=== PATIENT | male | born 1960 | race Caucasian/White ===

== ENCOUNTER 2018-11-29 16:15 | Emergency (ER) | payer BC ==
[~2018-11-29] VITALS: Ht 188 cm; Wt 144.2 kg
[~2018-11-29 16:15] MED LIST: ACET325 PO; CYAFAPYR PO; LISI5 PO; NAPR220 PO; THIA100 PO; XARELTO15 MG PO
[2018-11-29 17:23] LABS: BASOPHILS ABSOLUTE AUTO 0.03 K/mm3 (0.00-0.23); BASOPHILS PERCENT AUTO 0 % (0-2); EOSINOPHILS ABSOLUTE AUTO 0.11 K/mm3 (0.00-0.68); EOSINOPHILS PERCENT AUTO 2 % (0-6); Hematocrit 43.2 % (37.0-53.0); Hemoglobin 14.8 g/dL (13.5-17.5); IMMATURE GRAN ABSOLUTE AUTO 0.02 K/mm3 (0.00-0.10); IMMATURE GRAN PERCENT AUTO 0 % (0-1); LYMPHOCYTES ABSOLUTE AUTO 1.64 K/mm3 (0.84-5.20); LYMPHOCYTES PERCENT AUTO 24 % (21-46); MONOCYTES ABSOLUTE AUTO 0.56 K/mm3 (0.16-1.47); MONOCYTES PERCENT AUTO 8 % (4-13); Mean Corpuscular HGB 33.6 pg (26.0-34.0); Mean Corpuscular HGB Conc 34.3 g/dL (31.5-36.5); Mean Corpuscular Volume 98 fL (80-100); Mean Platelet Volume 10.4 fL (9.1-12.4); NEUTROPHILS ABSOLUTE AUTO 4.55 K/mm3 (1.96-9.15); NEUTROPHILS PERCENT AUTO 66 % (41-73); Platelet Count 151 K/mm3 (150-400); RDW Coefficient Variation 12.4 % (11.7-14.2); White Blood Cell Count 6.91 K/mm3 (4.00-11.30)
[2018-11-29 17:40] LABS: Alanine Aminotransfer (ALT/SGP 102 U/L (12-78); Albumin, Blood 3.3 g/dL (3.4-5.0); Albumin/Globulin Ratio 0.8 (0.8-1.8); Alk Phos 77 U/L (50-136); Anion Gap 6 mmol/L (6-16); Aspartate Aminotrans (AST/SGOT 65 U/L (12-37); Bilirubin, Total 0.6 mg/dL (0.1-1.0); Blood Urea Nitrogen 17 mg/dL (8-24); Bun/Creatinine Ratio 17.3 (12.0-20.0); CO2, Blood 26 mmol/L (21-32); Calcium, Blood 8.9 mg/dL (8.5-10.1); Chloride, Blood 103 mmol/L (98-108); Creatinine, Blood 0.98 mg/dL (0.60-1.20); Globulin, Blood 4.1 g/dL (2.2-4.0); Glomerular Filtration Rate >60 (60-); Glucose, Blood 116 mg/dL (70-99); Potassium, Blood 4.2 mmol/L (3.5-5.5); Sodium, Blood 135 mmol/L (136-145); Total Protein, Blood 7.4 g/dL (6.4-8.2)
[2018-11-29 19:18] LABS: Source, Urine Clean Catch
[2018-11-29 19:21] LABS: Appearance, Urine Cloudy (Clear); Bilirubin, Urine Neg (Neg); Blood, Urine 5+ (Neg); Color, Urine Amber (P-Yellow); Glucose Qualitative, Urine Neg (Neg); Ketones, Urine 1+ (Neg); Leukocyte Esterase, Urine 1+ (Neg); Nitrite, Urine Neg (Neg); Protein, Urine 3+ (Neg); Specific Gravity, Urine 1.025 (1.003-1.022); Urobilinogen, Urine NORM (Normal)
[2018-11-29 19:33] LABS: Bacteria Many /hpf; Red Blood Cells, Urine TNTC /hpf (0-2); Squamous Epithelial Cells Not Seen /hpf (Few); Yeast/Fungi Urine Mod /hpf
[2018-11-29 19:34] LABS: Mucus Light (0-Heavy)
== END 2018-11-29 21:20 | disposition home or self-care (01) ==
LOC: ER 16:15
PROVIDERS: Physician Assistant
DX: R31.9 Hematuria, unspecified (principal); Z79.899 Other long term (current) drug therapy
CPT/HCPCS: 74176; 80053; 81001; 85025; 87086; 99284-25

== ENCOUNTER 2023-03-12 10:17 | Inpatient (IN) | payer BC ==
[~2023-03-12] VITALS: Ht 188 cm; Wt 103.3 kg
[~2023-03-12 10:17] MED LIST changes: +B-1100 M1 PO; -THIA100 PO; -XARELTO15 MG PO; +XARELTO20 MG PO
[2023-03-12 11:10] LABS: BASOPHILS ABSOLUTE AUTO 0.02 K/mm3 (0.00-0.23); BASOPHILS PERCENT AUTO 0 % (0-2); EOSINOPHILS ABSOLUTE AUTO 0.07 K/mm3 (0.00-0.68); EOSINOPHILS PERCENT AUTO 2 % (0-6); Hematocrit 26.2 % (37.0-53.0); Hemoglobin 9.1 g/dL (13.5-17.5); IMMATURE GRAN ABSOLUTE AUTO 0.02 K/mm3 (0.00-0.10); IMMATURE GRAN PERCENT AUTO 0 % (0-1); LYMPHOCYTES ABSOLUTE AUTO 0.87 K/mm3 (0.84-5.20); LYMPHOCYTES PERCENT AUTO 19 % (21-46); MONOCYTES ABSOLUTE AUTO 0.68 K/mm3 (0.16-1.47); MONOCYTES PERCENT AUTO 15 % (4-13); Mean Corpuscular HGB Conc 34.7 g/dL (31.5-36.5); Mean Corpuscular Volume 107 fL (80-100); Mean Platelet Volume 10.5 fL (9.1-12.4); NEUTROPHILS ABSOLUTE AUTO 2.91 K/mm3 (1.96-9.15); NEUTROPHILS PERCENT AUTO 64 % (41-73); RDW Coefficient Variation 13.9 % (11.7-14.2); RDW Standard Deviation 54.6 fL (35.1-46.3); Red Blood Cell Count 2.46 M/mm3 (4.30-5.90); White Blood Cell Count 4.57 K/mm3 (4.00-11.30)
[2023-03-12 11:11] LABS: Source, Urine Clean Catch
[2023-03-12] MEDS ORDERED: Methocarbamol750 MG PO (11:25)
[2023-03-12] MEDS ORDERED: OZEMPIC0.25 MG/0. SQ (11:25)
[2023-03-12] MEDS ORDERED: CARVEDILOL3.125 MG PO (11:25)
[2023-03-12] MEDS ORDERED: FUROSEMIDE20 MG PO (11:25)
[2023-03-12] MEDS ORDERED: ECOTRIN325 MG PO (11:25)
[2023-03-12 11:26] LABS: Appearance, Urine Clear (Clear); Blood, Urine 5+ (Neg); Color, Urine Amber (P-Yellow); Glucose Qualitative, Urine Neg (Neg); Ketones, Urine 1+ (Neg); Leukocyte Esterase, Urine 2+ (Neg); Nitrite, Urine Pos (Neg); Protein, Urine 2+ (Neg); Specific Gravity, Urine 1.025 (1.003-1.022); Urobilinogen, Urine 3+ (Normal)
[2023-03-12] MEDS ORDERED: METFORMIN HCL500 M2 PO (11:26)
[2023-03-12] MEDS ORDERED: OXYC5 PO (11:26)
[2023-03-12] MEDS ORDERED: TRAZ50 PO (11:26)
[2023-03-12] MEDS ORDERED: ONDA4 PO (11:26)
[2023-03-12 11:27] LABS: Albumin, Blood 2.4 g/dL (3.4-5.0); Albumin/Globulin Ratio 0.8 (0.8-1.8); Bilirubin, Total 3.3 mg/dL (0.1-1.0); Bun/Creatinine Ratio 20.5 (12.0-20.0); Calcium, Blood 8.7 mg/dL (8.5-10.1); Creatinine, Blood 1.85 mg/dL (0.60-1.20); Globulin, Blood 2.9 g/dL (2.2-4.0); Potassium, Blood 4.6 mmol/L (3.5-5.5); Total Protein, Blood 5.3 g/dL (6.4-8.2)
[2023-03-12 12:04] LABS: Bilirubin, Urine 2+ (Neg)
[2023-03-12 12:05] LABS: Bacteria Mod /hpf; Mucus Light (0-Heavy); Squamous Epithelial Cells Few /hpf (Few)
[2023-03-12 12:28] LABS: Platelet Count 61 K/mm3 (150-400)
[2023-03-12 16:20] VITALS: BP 106/59
--- NOTE | 2023-03-12 19:35 | NUR ---
SHIFT SUMMARY PTN TO ER WITH CONFUSION, WEAKNESS, AND POOR ORAL INTAKE, ADMITTED WITH ACUTE ENCEPHALOPATHY, UTI, BRENDA. CRITICAL VALUE LACTIC ACID 3.5, FLUID STARTED. LACTIC ACID DOWN TO 3.4. PTN HAD LEFT KNEE REPLACEMENT ON 03/09 BY HIS REPORT, INCISION COVERED, C/D/I. PTN A&O, NO CONFUSION NOTED DURING ADMISSION ASSESS. PTN DOES HAVE HX OF ALCOHOL, REPORTING THAT HE DRINKS WHISKEY, LAST DRINK THURSDAY 03/08. HE DENIES DAILY DRINKING. PTN DID GET ANXIOUS AND AGITATED EARLY IN HIS ADMIT AND CIWA WAS DONE, SCORE OF 4. DR BACA DID ORDER MEDICATION FOR AGITATION, AND THIS WAS GIVEN AND PTN RESTED COMFORTABLY AFTER. CONTINUE WITH PLAN OF CARE.
[2023-03-13 06:00] LABS: Hematocrit 24.6 % (37.0-53.0); Hemoglobin 8.5 g/dL (13.5-17.5); Mean Corpuscular HGB Conc 34.6 g/dL (31.5-36.5); Mean Corpuscular Volume 107 fL (80-100); Mean Platelet Volume 10.6 fL (9.1-12.4); Platelet Count 69 K/mm3 (150-400); RDW Coefficient Variation 13.9 % (11.7-14.2); RDW Standard Deviation 53.8 fL (35.1-46.3); White Blood Cell Count 3.76 K/mm3 (4.00-11.30)
[2023-03-13 06:36] LABS: Albumin, Blood 2.3 g/dL (3.4-5.0); Albumin/Globulin Ratio 0.8 (0.8-1.8); Bilirubin, Total 4.5 mg/dL (0.1-1.0); Bun/Creatinine Ratio 31.4 (12.0-20.0); Calcium, Blood 8.3 mg/dL (8.5-10.1); Creatinine, Blood 1.05 mg/dL (0.60-1.20); Globulin, Blood 2.8 g/dL (2.2-4.0); Potassium, Blood 4.1 mmol/L (3.5-5.5); Total Protein, Blood 5.1 g/dL (6.4-8.2)
[2023-03-13 07:23] VITALS: BP 125/82
--- NOTE | 2023-03-13 07:27 | NUR ---
Shift Summary Pt AOX3, some confusion and forgetfulness. He is impulsive when he wakes up and needs to void, bed alarm on. Pt unsteady on his feet d/t recent L knee replacement. Pt c/o L knee pain and was medicated per emar and a pillow was placed under his L leg which pt states helped. Running NS@100. VSS, pleasant and cooperative with care.
--- NOTE | 2023-03-13 14:19 | NUR ---
CONTACTED PT AND REPORT TO THIS RN THAT AFTER KNEE REPLACEMENT SURGERY PT ACCIDENTLY REMOVED STERI STRIPS DURING HOME DRESSING CHANGE AND THAT THEY HAD REPORTED IT TO SURGEON AND INSTRUCTED TO REAPPLY STERI STRIPS BY THIS RN. DR. BACA NOTIFIED OF SHADOWING THROUGH [employer] AND OK'ED NEW STERI STRIP/AQUACEL DRESSING, NO FURTHER CONSULTATION NECESSARY.
--- NOTE | 2023-03-13 16:23 | NUR ---
SHIFT SUMMARY PT A&OX3-4 AND IN PLEASENT MOOD T/O SHIFT. AT BEDSIDE T/O SHIFT, REQUESTED DR. CUBA IF POSSIBLE-PLANS TO RETURN IN AM. L KNEE REDRESSED THIS SHIFT, STERI STRIP IN PLACE-CONSULT TO DR. PAPPAS CALLED INTO ANSWERING SERVICE. DOES NOT APPEAR TO BE IN ACTIVE ETOH WITHDRAWL-OCC. PLEASENT [id number], EASILY REORIENTED. CALL LIGHT W/IN REACH. RESTING IN BED T/O SHIFT.
[2023-03-13 17:51] VITALS: BP 144/75
[2023-03-13 19:42] VITALS: BP 130/68
[2023-03-14 02:04] VITALS: BP 135/82
[2023-03-14 06:09] LABS: Hematocrit 22.9 % (37.0-53.0); Hemoglobin 8.3 g/dL (13.5-17.5); Mean Corpuscular HGB 38.1 pg (26.0-34.0); Mean Corpuscular HGB Conc 36.2 g/dL (31.5-36.5); Mean Corpuscular Volume 105 fL (80-100); Mean Platelet Volume 10.2 fL (9.1-12.4); Platelet Count 70 K/mm3 (150-400); RDW Coefficient Variation 13.6 % (11.7-14.2); RDW Standard Deviation 52.3 fL (35.1-46.3); Red Blood Cell Count 2.18 M/mm3 (4.30-5.90); White Blood Cell Count 3.13 K/mm3 (4.00-11.30)
--- NOTE | 2023-03-14 06:14 | NUR ---
Shift Summary At the start of the shift pt had an episode of acute confusion, he was trying to dismantle the remote, had pulled out his IVs and had a small laceration on his forehead. He was redirectable back to bed and was given his scheduled librium with nighttime meds. No further issues with confusion t/o the night. Bed alarm would alert us to him sitting up and needing to use the urinal. Put a compression stalking on annelise wrap on L leg but compression stalking was causing pain, removed stalking and kept annelise wrap around L knee. Pt c/o of 7-8/10 pain in his L knee, medicated per EMAR. VSS, cooperative with care, slept through most of the night.
[2023-03-14 06:26] LABS: Albumin, Blood 2.1 g/dL (3.4-5.0); Albumin/Globulin Ratio 0.7 (0.8-1.8); Bun/Creatinine Ratio 26.6 (12.0-20.0); Calcium, Blood 8.2 mg/dL (8.5-10.1); Creatinine, Blood 0.68 mg/dL (0.60-1.20); Globulin, Blood 2.9 g/dL (2.2-4.0)
[2023-03-14 07:25] VITALS: BP 128/72
--- NOTE | 2023-03-14 08:30 | NUR ---
pt laying in bed awake a/ox3, pleasant and cooperative with care, follows commands well, reports h/a 05/25, gave pain meds as ordered, lungs are clear t/o, resp even and unlabored, no cough noted, uses cpap at hs, on r/a, hrr, murmur noted, edema noted to left lower ext, ppp+2, cap refill<3 sec, vs stable, afebrile, iv site to left wrist, is very positional, will change today, btx4, abd round soft nontender, voids without diff via urinal, skin has dressing on left knee from recent knee surg, c/d/i, gustabo, PT/OT working with ambulating, alvaro, call light in reach.
[2023-03-14] MEDS ORDERED: PANT40 PO (12:35)
[2023-03-14] MEDS ORDERED: CEPH500 PO (12:35)
[2023-03-14] MEDS ORDERED: FOLBIC PO (12:40)
--- NOTE | 2023-03-14 13:12 | NUR ---
Pt has been discharged to home, iv removed intact, went over discharge instructions with him and spouce, they verbalized understanding, new meds faxed to [facility], pt has all his belongings, left via wheelchair with smooth stucco resurfacer and spouce in attendence.
== END 2023-03-14 13:12 | disposition home or self-care (01) | DRG 559 ==
LOC: ER 10:17 → MEDS 10:18
PROVIDERS: Emergency Medicine; ADMIT Internal Medicine
PROC: 3E03329 Introduction of Other Anti-infective into Peripheral Vein, Percutaneous Approach (ICD-10-PCS; 2023-03-13)
PROC: 5A09357 Assistance with Respiratory Ventilation, Less than 24 Consecutive Hours, Continuous Positive Airway Pressure (ICD-10-PCS; principal; 2023-03-14)
DX: T84.54XA Infection and inflammatory reaction due to internal left knee prosthesis, initial encounter (principal); A41.9 Sepsis, unspecified organism; G93.41 Metabolic encephalopathy; R65.20 Severe sepsis without septic shock; N17.9 Acute kidney failure, unspecified; F10.239 Alcohol dependence with withdrawal, unspecified; N39.0 Urinary tract infection, site not specified; D64.9 Anemia, unspecified; K74.60 Unspecified cirrhosis of liver; G47.33 Obstructive sleep apnea (adult) (pediatric); E86.9 Volume depletion, unspecified; E66.9 Obesity, unspecified; E11.9 Type 2 diabetes mellitus without complications; K76.0 Fatty (change of) liver, not elsewhere classified; I10 Essential (primary) hypertension; Z96.653 Presence of artificial knee joint, bilateral; Z86.711 Personal history of pulmonary embolism; Z98.890 Other specified postprocedural states; Z79.899 Other long term (current) drug therapy; Z79.01 Long term (current) use of anticoagulants; Z79.811 Long term (current) use of aromatase inhibitors; Z99.89 Dependence on other enabling machines and devices; Z90.49 Acquired absence of other specified parts of digestive tract; Z68.38 Body mass index [BMI] 38.0-38.9, adult; Z87.19 Personal history of other diseases of the digestive system; Z79.82 Long term (current) use of aspirin; Z79.84 Long term (current) use of oral hypoglycemic drugs; Z79.891 Long term (current) use of opiate analgesic
CPT/HCPCS: 36415; 70450; 71046; 80053; 81001; 82140; 82607; 82728; 82746; 82947; 83540; 83550; 83605; 83735; 84443; 85025; 85027; 87040; 87086; 96361; 96365; 96375; 96376; 97110; 97110-CQ; 97116; 97116-CQ; 97162; 99285-25; A9270; G0378; J0696; J2060; J2270; J2405; J3475; J7030

== ENCOUNTER 2023-09-17 18:19 | Emergency (ER) | payer BC ==
[~2023-09-17] VITALS: Ht 188 cm; Wt 145.2 kg
[~2023-09-17 18:19] MED LIST changes: +CARVEDILOL3.125 MG PO; +CEPH500 PO; +ECOTRIN325 MG PO; +FOLBIC PO; +FUROSEMIDE20 MG PO; +METFORMIN HCL500 M2 PO; +Methocarbamol750 MG PO; +ONDA4 PO; +OXYC5 PO; +OZEMPIC0.25 MG/0. SQ; +PANT40 PO; +TRAZ50 PO
[2023-09-17 20:17] LABS: BASOPHILS ABSOLUTE AUTO 0.02 K/mm3 (0.00-0.23); BASOPHILS PERCENT AUTO 1 % (0-2); EOSINOPHILS ABSOLUTE AUTO 0.21 K/mm3 (0.00-0.68); EOSINOPHILS PERCENT AUTO 5 % (0-6); Hematocrit 30.7 % (37.0-53.0); Hemoglobin 10.6 g/dL (13.5-17.5); IMMATURE GRAN ABSOLUTE AUTO 0.04 K/mm3 (0.00-0.10); IMMATURE GRAN PERCENT AUTO 1 % (0-1); LYMPHOCYTES ABSOLUTE AUTO 0.54 K/mm3 (0.84-5.20); LYMPHOCYTES PERCENT AUTO 12 % (21-46); MONOCYTES ABSOLUTE AUTO 0.43 K/mm3 (0.16-1.47); MONOCYTES PERCENT AUTO 10 % (4-13); Mean Corpuscular HGB 37.3 pg (26.0-34.0); Mean Corpuscular HGB Conc 34.5 g/dL (31.5-36.5); Mean Corpuscular Volume 108 fL (80-100); Mean Platelet Volume 11.2 fL (9.1-12.4); NEUTROPHILS ABSOLUTE AUTO 3.15 K/mm3 (1.96-9.15); NEUTROPHILS PERCENT AUTO 72 % (41-73); Platelet Count 61 K/mm3 (150-400); RDW Coefficient Variation 14.1 % (11.7-14.2); RDW Standard Deviation 55.8 fL (35.1-46.3); Red Blood Cell Count 2.84 M/mm3 (4.30-5.90); White Blood Cell Count 4.39 K/mm3 (4.00-11.30)
[2023-09-17 20:29] LABS: Albumin, Blood 1.9 g/dL (3.4-5.0); Albumin/Globulin Ratio 0.5 (0.8-1.8); Bilirubin, Total 11.7 mg/dL (0.1-1.0); Bun/Creatinine Ratio 22.3 (12.0-20.0); Calcium, Blood 8.9 mg/dL (8.5-10.1); Creatinine, Blood 0.94 mg/dL (0.60-1.20); Globulin, Blood 4.1 g/dL (2.2-4.0); Potassium, Blood 3.9 mmol/L (3.5-5.5)
[2023-09-17 23:40] LABS: International Normalized Ratio 1.85; Prothrombin Time Results 18.8 Sec (9.7-11.5)
[2023-09-18 07:47] VITALS: BP 141/76
== END 2023-09-18 08:33 | disposition short-term general hospital (02) ==
LOC: ER 18:19
PROVIDERS: Emergency Medicine; Student in an Organized Health Care Education/Training Program
DX: R17 Unspecified jaundice (principal); D64.9 Anemia, unspecified; D69.6 Thrombocytopenia, unspecified; Z79.899 Other long term (current) drug therapy; Z79.84 Long term (current) use of oral hypoglycemic drugs; M19.90 Unspecified osteoarthritis, unspecified site
CPT/HCPCS: 74177; 76705; 80053; 82140; 83690; 85025; 85610; 85730; 93005; 93010; 96365-59; 96372-59; 99285-25; J1885; J2543; Q9967